=== PATIENT | female | born 1940 | race Caucasian/White ===

== ENCOUNTER 2019-12-01 10:39 | Emergency (ER) | payer MEDICARE ==
[~2019-12-01] VITALS: Ht 154.9 cm; Wt 90.0 kg
[~2019-12-01 10:39] MED LIST: FOLI0.4T2 PO; FURO-150 PO; POTA20TA39 PO
[2019-12-01 10:44] VITALS: BP 175/87
== END 2019-12-01 13:16 | disposition home or self-care (01) ==
LOC: ER 10:40
DX: M25.511 Pain in right shoulder (principal); W01.0XXA Fall on same level from slipping, tripping and stumbling without subsequent striking against object, initial encounter; Y93.89 Activity, other specified; Y92.89 Other specified places as the place of occurrence of the external cause; Y99.8 Other external cause status
CPT/HCPCS: 73030; 73502; 73564; 99284

== ENCOUNTER 2023-06-21 09:29 | Emergency (ER) | payer MEDICARE ==
[~2023-06-21] VITALS: Ht 154.9 cm; Wt 66.2 kg
[~2023-06-21 09:29] MED LIST changes: -FOLI0.4T2 PO; +FOLI0.4T6 PO
[2023-06-21 09:49] VITALS: TEMP 98.1
[2023-06-21 10:52] LABS: BASOPHILS % (AUTO) 0.4 % (0-1); EOSINOPHILS % (AUTO) 0.1 % (0-6); HEMATOCRIT 44.5 % (35.0-45.0); HEMOGLOBIN 14.9 g/dl (12.0-16.0); LYMPHOCYTES # (AUTO) 0.7 X10'3 (1.1-4.8); MEAN CORPUSCULAR HEMOGLOBIN 30.3 PG (27.0-31.0); MEAN CORPUSCULAR HGB CONC 33.6 g/dL (33.0-36.5); MEAN CORPUSCULAR VOLUME 90.2 FL (78-98); MEAN PLATELET VOLUME 7.8 FL (7.4-10.4); MONOCYTES # (AUTO) 0.6 X10'3 (0-0.9); MONOCYTES % (AUTO) 6.6 % (2-12); NEUTROPHILS % (AUTO) 85.9 % (42-75); PLATELET COUNT 192 X10'3 (140-440); RED BLOOD COUNT 4.93 X10'6 (4.20-5.60); RED CELL DISTRIBUTION WIDTH 13.3 % (11.5-14.5); WHITE BLOOD COUNT 9.3 X10'3 (4.5-11.0)
[2023-06-21 11:09] LABS: APTT 29 SECONDS (22-32); INR 1.1 INR; PROTHROMBIN TIME 11.3 SECONDS (9.0-12.0)
[2023-06-21 11:11] LABS: ALBUMIN 4.2 G/DL (3.4-5.0); ANION GAP 10 (8-16); BLOOD UREA NITROGEN 11 MG/DL (7-18); BUN/CREATININE RATIO 16.7 (10.0-20.0); CALCIUM 9.2 MG/DL (8.5-10.1); CHLORIDE 97 MMOL/L (99-107); CREATININE 0.66 MG/DL (0.40-0.90); GLUCOSE 107 MG/DL (70-104); POTASSIUM 4.5 MMOL/L (3.5-5.1); SODIUM 135 MMOL/L (135-145); eCRCL 48 ML/MIN; eGFR 85 ML/MIN
[2023-06-21 12:46] VITALS: BP 137/88; PULSE 97; RESP 16; O2SAT 99
== END 2023-06-21 12:47 | disposition home or self-care (01) ==
LOC: ER 09:29
DX: K62.5 Hemorrhage of anus and rectum (principal); Z88.8 Allergy status to other drugs, medicaments and biological substances
CPT/HCPCS: 36415; 71045; 80048; 85025; 85610; 85730; 86885; 86900; 86901; 99283; 99284